=== PATIENT | female | born 1985 | race Two or more races ===

== ENCOUNTER 2019-01-17 09:46 | Emergency (ER) | payer MEDICAID, OTHER ==
[~2019-01-17] VITALS: Ht 157.5 cm; Wt 65.8 kg
[2019-01-17 10:05] VITALS: BP 127/77
[2019-01-17] MEDS ORDERED: PHENAZOPYRIDINE HCL 100 MG TAB PO ONE (10:30)
[2019-01-17 10:44] LABS: Urine Bacteria FEW /hpf (None Seen); Urine Blood 2+ /uL (Negative); Urine Specific Gravity 1.007 (1.001-1.035); Urine WBC 209 /hpf (0 - 5); Urine WBC Clumps PRESENT /hpf (None Seen)
== END 2019-01-17 10:39 | disposition home or self-care (01) ==
LOC: ER 09:49
DX: N39.0 Urinary tract infection, site not specified (principal)
CPT/HCPCS: 81001; 81025

== ENCOUNTER 2022-08-04 17:50 | Emergency (ER) | payer MEDICAID ==
[~2022-08-04] VITALS: Ht 157.5 cm; Wt 69.4 kg
[2022-08-04] MEDS ORDERED: IBUPROFEN 600 MG TAB PO ONE (19:30)
[2022-08-04] MEDS ORDERED: DexAMETHasone 4 MG TAB PO ONE (19:30)
[2022-08-04] MEDS ORDERED: CYCL-839 PO (20:11)
[2022-08-04] MEDS ORDERED: IBU600T PO (20:11)
[2022-08-04 21:08] VITALS: BP 130/80
== END 2022-08-04 21:10 | disposition home or self-care (01) ==
LOC: EDBD 17:50 → ER 17:50
DX: S76.011A Strain of muscle, fascia and tendon of right hip, initial encounter (principal); S13.4XXA Sprain of ligaments of cervical spine, initial encounter; S33.5XXA Sprain of ligaments of lumbar spine, initial encounter; S83.91XA Sprain of unspecified site of right knee, initial encounter; S09.90XA Unspecified injury of head, initial encounter; V89.2XXA Person injured in unspecified motor-vehicle accident, traffic, initial encounter; Y93.89 Activity, other specified; Y92.89 Other specified places as the place of occurrence of the external cause; Y99.8 Other external cause status
CPT/HCPCS: 70450; 72040; 72100; 73502; 73562; 99284; J8540